=== PATIENT | male | born 1965 ===

== ENCOUNTER 2022-03-04 17:55 | Emergency (ER) | payer SELFPAY ==
[2022-03-04 18:09] VITALS: BP 154/84
== END 2022-03-05 04:30 | disposition left against medical advice (07) ==
LOC: ED 17:55
DX: E11.9 Type 2 diabetes mellitus without complications (principal); Z53.21 Procedure and treatment not carried out due to patient leaving prior to being seen by health care provider
CPT/HCPCS: 82962